=== PATIENT | female | born 1975 | race Caucasian/White ===

== ENCOUNTER 2017-11-13 08:10 | Outpatient (CLI) | payer BC ==
--- NOTE | 2017-11-13 15:10 | MRI ---
MRI BRAIN NONCONTRAST: MAGNETIC RESONANCE ANGIOGRAM MRA OF HEAD NONCONTRAST: DATE: 11/13/17. HISTORY: A 42-year-old female with G44.1, vascular headache, not elsewhere classified. Family history o f intracranial aneurysm. TECHNIQUE: Standard noncontrast brain MRI performed. Three-D [id number] MRA acquired in multiple axial slabs through the [place] of [place]. Source images and 3D MIP reconstructions evaluated. FINDINGS: The ventricles are normal in size and configuration. There is no major intraaxial signal abnormality , restricted diffusion, midline shift or any other mass effect, recent intraaxial hemorrhage, or extr aaxial fluid collection. The anterior and posterior circulation arteries appear normal, with no acqu ired short-segment focal stenosis. The intracranial left vertebral artery is diminutive. There is n o evidence of aneurysm larger than 3 mm. IMPRESSION: Normal. jn[] POS: OFF
== END 2017-11-13 08:11 | disposition home or self-care (01) ==
LOC: TBSIIMAG 08:10
PROVIDERS: ATTEND Psychiatry & Neurology Neurology
DX: G44.1 Vascular headache, not elsewhere classified (principal)
CPT/HCPCS: 70544; 70551

== ENCOUNTER 2020-03-30 13:45 | Outpatient (CLI) | payer BC, OTHER ==
--- NOTE | 2020-03-30 14:30 | MMO ---
Left Breast MAMMO Unilat Diag [facility] LT+JAN[facility]. CLINICAL HISTORY: Patient is 44 years old and is seen for additional evaluation requested from prior study. The patient has the following family history of breast cancer: maternal aunt, at age 65. The patient has no personal history of cancer. VIEWS: The views performed were: left craniocaudal spot compression with tomosynthesis; left mediolateral oblique spot compression with tomosynthesis; and left mediolateral with tomosynthesis. FILMS COMPARED: The present examination has been compared to prior imaging studies performed at [facility] on 03/26/2020, at [facility] on 03/30/2020, and at [facility] on 02/06/2019 and 02/07/2019. This study has been interpreted with the assistance of computer-aided detection. MAMMOGRAM FINDINGS: There are scattered fibroglandular densities. Mass at 5:00 cis consistent with lymph node on mammo and US Additional views were performed. There are no suspicious masses, suspicious calcifications, or new areas of architectural distortion. IMPRESSION: THERE IS NO MAMMOGRAPHIC EVIDENCE OF MALIGNANCY. A ROUTINE FOLLOW-UP MAMMOGRAM IN 1 YEAR IS RECOMMENDED. THE RESULTS OF THIS EXAM WERE SENT TO THE PATIENT. ACR BI-RADS Category 2 - Benign finding MAMMOGRAPHY NOTE: 1. A negative mammogram report should not delay a biopsy if a dominant of clinically suspicious mass is present. 2. Approximately 10% to 15% of breast cancers are not detected by mammography. 3. Adenosis and dense breasts may obscure an underlying neoplasm. Reported by: PRIYANK WERNER MD Electonically Signed: [id number]
--- NOTE | 2020-03-30 14:55 | ULT ---
LEFT BREAST ULTRASOUND: 03/30/20 HISTORY: Abnormal mammogram. FINDINGS: Correlation is made with mammograms of today and 03/26/20. Sonographic evaluation of the 5 o'clock position of the left breast 5 cm from the nipple demonstrates a lobulated hyperechoic nonshadowing mass with echogenic hilum and flow consistent with lymph node m easuring about 7 x 6 x 5 mm. IMPRESSION: BIRADS 2: Benign Finding(s) Routine annual screening mammography (for women over age 40).
== END 2020-03-30 13:46 | disposition home or self-care (01) ==
LOC: BICMAMMO 13:45
PROVIDERS: ATTEND Physician Assistant
DX: N63.23 Unspecified lump in the left breast, lower outer quadrant (principal)
CPT/HCPCS: G0279

== ENCOUNTER 2021-05-22 10:14 | Outpatient (CLI) | payer BC, OTHER | END 2021-05-22 10:15 | disposition home or self-care (01) | LOC: SCSRAD 10:14 | PROVIDERS: ATTEND Physician Assistant | DX: M54.5 Low back pain (principal); M47.816 Spondylosis without myelopathy or radiculopathy, lumbar region | CPT/HCPCS: 72100 ==

== ENCOUNTER 2022-06-03 13:39 | Outpatient (CLI) | payer BC, OTHER | END 2022-06-03 13:40 | disposition home or self-care (01) | LOC: BICRAD 13:39 | PROVIDERS: ATTEND Podiatrist | DX: M72.2 Plantar fascial fibromatosis (principal); M79.671 Pain in right foot; M77.31 Calcaneal spur, right foot; Z98.890 Other specified postprocedural states ==

== ENCOUNTER 2022-09-17 12:21 | Outpatient (CLI) | payer BC, OTHER | END 2022-09-17 12:22 | disposition home or self-care (01) | LOC: TBSIIMAG 12:21 | PROVIDERS: ATTEND Orthopaedic Surgery | DX: S46.091A Other injury of muscle(s) and tendon(s) of the rotator cuff of right shoulder, initial encounter (principal) ==

== ENCOUNTER 2023-02-16 07:59 | Outpatient (CLI) | payer BC, OTHER | END 2023-02-16 08:00 | disposition home or self-care (01) | LOC: RAD 07:59 | PROVIDERS: ATTEND Internal Medicine | DX: R05.3 Chronic cough (principal); R91.1 Solitary pulmonary nodule | CPT/HCPCS: 71046 ==

== ENCOUNTER 2023-05-14 15:50 | Outpatient (CLI) | payer BC, OTHER | END 2023-05-14 15:51 | disposition home or self-care (01) | LOC: SCSRAD 15:50 | PROVIDERS: ATTEND Nurse Practitioner Family | DX: R05.1 Acute cough (principal) | CPT/HCPCS: 71046 ==

== ENCOUNTER 2023-06-05 11:51 | Outpatient (CLI) | payer BC, OTHER | END 2023-06-05 11:52 | disposition home or self-care (01) | LOC: SCSRAD 11:51 | PROVIDERS: ATTEND Nurse Practitioner Family | DX: R07.81 Pleurodynia (principal) ==

== ENCOUNTER 2025-05-29 16:13 | Outpatient (CLI) | payer BC, OTHER | END 2025-05-29 16:14 | disposition home or self-care (01) | LOC: SCSRAD 16:13 | PROVIDERS: ATTEND Nurse Practitioner Family | DX: R60.0 Localized edema (principal) | CPT/HCPCS: 71046 ==